=== PATIENT | female | born 1980 | race Hispanic/Latino ===

== ENCOUNTER 2020-01-24 22:32 | Inpatient (IN) | payer OTHER ==
[2020-01-24 22:58] LABS: Hemoglobin 12.7 g/dL (12.0-16.0); Mean Corpuscular HGB CONC 32.1 g/dL (32.0-36.0); Mean Corpuscular Hemoglobin 28.3 pg (27.0-31.0); Mean Platelet Volume 6.6 fL (7.4-10.4); Platelet Count 233 thou/uL (130-400); White Blood Cell (WBC) Count 18.2 thou/uL (4.8-10.8)
[2020-01-24 23:17] LABS: Band 13 % (5-11); Lymphocytes 1 % (21-51); MDiff Complete? YES; Monocytes 1 % (0-10); Neutrophil 85 % (42-75); Platelet Morphology Comment Appears Adequate; RBC Morphology Normal
[2020-01-24 23:18] LABS: ALT (SGPT) 17 U/L (8-55); AST (SGOT) 14 U/L (5-34); Albumin 3.9 g/dL (3.5-5.0); Alkaline Phosphatase 82 U/L (40-110); Anion Gap 11 mmol/L (10-20); BUN (Urea Nitrogen) 9 mg/dL (7.0-18.7); Bilirubin, Total 0.5 mg/dL (0.2-1.2); Calc. Creatinine Clearance 0 mL/min (70-130); Carbon Dioxide 25 mmol/L (22-29); Chloride 106 mmol/L (98-107); Estimated GFR-MDRD 83; Globulin 2.7 g/dL (2.4-3.5); Glucose 145 mg/dL (70-105); Potassium 3.7 mmol/L (3.5-5.1); Protein, Total 6.6 g/dL (6.0-8.3); Sodium 138 mmol/L (136-145)
[2020-01-24 23:28] LABS: Bacteria/HPF 4+ HPF (None Seen); Bilirubin Negative (Negative); Blood, Urine 2+ (Negative); Clarity Turbid (Clear); Glucose, Urine (Dipstick) Normal (Negative); Leukocyte 500 Leu/uL (Negative); Mucous/LPF 1+ LPF (<2+); Nitrite Negative (Negative); Pregnancy Test - Urine (BHCG) Negative (Negative); Pregu Control Background? CLEAR/WHITE (CLR/WHITE); Pregu Control Bar Appear? YES (CONTROL BAR); Protein, Urine (Dipstick) 50 mg/dL (Neg-Trace); Specific Gravity 1.019 (1.002-1.036); Squamous Epithelial 0-3 HPF (0-3); Urobilinogen Normal mg/dL (Less than 2); WBC/HPF Greater than 50 HPF (0-3)
[2020-01-24] MEDS ORDERED: cefTRIAXone\\ROCEPHIN 1 GM VIAL ONE (23:45)
[2020-01-24] MEDS ORDERED: Acetaminophen 500 MG TAB ONE (23:59)
[2020-01-25] MEDS ORDERED: Morphine 4 MG/ML VIAL ONE (02:00)
[2020-01-25 03:14] VITALS: BMI 38.8
[2020-01-25] MEDS ORDERED: Ondansetron ODT 4 MG TAB SL PRN (03:29)
[2020-01-25] MEDS ORDERED: Ondansetron PF 4 MG/2 ML Vial IVP PRN (03:29)
[2020-01-25] MEDS ORDERED: Sodium Chloride 0.9% 1,000 ML IV SCH ×2 (03:30→05:00)
[2020-01-25] MEDS: Sodium Chloride 0.9% 1,000 ML IV SCH ×4 (03:45→18:00)
[2020-01-25] MEDS ORDERED: Morphine 2 MG/ML SYRINGE SLOW IVP PRN (04:54)
[2020-01-25] MEDS: Acetaminophen 325 MG TAB PO PRN ×4 (05:57→23:55)
[2020-01-25 06:29] LABS: Anion Gap 11 mmol/L (10-20); BUN (Urea Nitrogen) 6 mg/dL (7.0-18.7); Calc. Creatinine Clearance 203 mL/min (70-130); Calcium 8.1 mg/dL (7.8-10.44); Carbon Dioxide 21 mmol/L (22-29); Chloride 107 mmol/L (98-107); Estimated GFR-MDRD Greater than 90; Glucose 152 mg/dL (70-105); Potassium 3.8 mmol/L (3.5-5.1); Sodium 135 mmol/L (136-145)
[2020-01-25 06:31] LABS: Band 6 % (5-11); Hemoglobin 11.6 g/dL (12.0-16.0); Hypochromia SLIGHT = 6-15 cells (100X) (0-5/hpf); Lymphocytes 5 % (21-51); MDiff Complete? YES; Mean Corpuscular HGB CONC 33.2 g/dL (32.0-36.0); Mean Corpuscular Volume 87.5 fL (78.0-98.0); Mean Platelet Volume 7.2 fL (7.4-10.4); Monocytes 2 % (0-10); Neutrophil 87 % (42-75); Platelet Count 191 thou/uL (130-400); Platelet Morphology Comment Appears Adequate; RBC Distribution Width 13.1 % (11.5-14.5); White Blood Cell (WBC) Count 13.3 thou/uL (4.8-10.8)
--- NOTE | 2020-01-25 06:52 | HP ---
REASON FOR ADMISSION: Right inguinal pain. HISTORY OF PRESENT ILLNESS: This is a 39-year-old female patient, who started having right inguinal pain radiating to her right lumbosacral area on the day of her presentation. She also noted that she developed an upset stomach, loss of appetite couple of days ago, and also diarrhea. She took ibuprofen, which made her nauseous. The patient describes her inguinal pain as severe and sharp in nature, associated with severe headache and muscle achiness. In the ER, she was found to have low blood pressure, also a positive urinalysis for infection. PAST MEDICAL HISTORY: The patient does not have any past medical history. SOCIAL HISTORY: She does not smoke, does not drink alcohol. FAMILY HISTORY: Reviewed, found to be noncontributory. PAST SURGICAL HISTORY: . ALLERGIES: NO NOTE OF ANY DRUG ALLERGY. REVIEW OF SYSTEMS: All systems reviewed, except for the above-mentioned right inguinal pain, found to be negative. PHYSICAL EXAMINATION: GENERAL: She is awake, alert, oriented, does not appear in distress. She does report severe headaches. VITAL SIGNS: Her blood pressure 102/66, temperature 100.8, heart rate of 93, and saturating 98% on room air. HEAD: Nontraumatic, normocephalic. Pupils are equal and reactive. Extraocular movements are intact. Nonicteric sclerae. Well injected conjunctivae. Oral mucosa normal. Nasal mucosa normal. NECK: Supple. No adenopathy. No murmur. Thyroid is not palpable. Trachea is midline. No supraclavicular adenopathy. HEART: S1 and S2 regular. No murmur. No gallops. No friction rubs. No displacement of PMI. LUNGS: Clear to auscultation bilaterally. No wheezes, no rhonchi, no crackles. ABDOMEN: Bowel sounds are positive. Tenderness on palpation of the right inguinal area. Positive costovertebral angle tenderness. EXTREMITIES: No lower extremity edema. No cyanosis noted. NEUROLOGIC: Exam of cranial nerves 2 through 12 within normal limits. Normal motor function. Normal sensory function. Normal reflexes. LABORATORY DATA: Blood work shows WBC of 18.2, neutrophil count 85%, lymphocyte count 1%, hemoglobin 12.7, and platelets of 233. Sodium 138, potassium 3.7, BUN 9, and creatinine 0.77. Urinalysis positive for leukocyte esterase and wbc. IMAGING DATA: An abdominal CT shows no evidence of obstructive stone. ASSESSMENT AND PLAN: This is a 39-year-old female patient, who is presenting with right inguinal pain. She has pyelonephritis. She is currently having episodes of shivering. I believe that she is bacteremic. For that reason, we will collect blood culture. I will expand her IV antibiotic therapy by using cefepime. She did receive a dose of Rocephin in the ER and also her right lower extremity did show some redness. She says that she had sunburn couple weeks ago, but I believe that also she might have cellulitis of that extremity. She does have history of an open ulceration on that extremity due to drainage of a cyst two years ago. The patient will be on aggressive IV fluid hydration. For DVT prophylaxis, she will be on Lovenox. Job ID: [id number]
--- NOTE | 2020-01-25 07:57 | CT ---
PRELIMINARY REPORT/[facility]/EMERGENCY AFTER HOURS PROCEDURE PROCEDURE: CT Scan Abdomen and Pelvis without IV Contrast Material. HISTORY: RIGHT flank pain. TECHNIQUE: Axial images were performed with multiplanar reconstructions without IV contrast material. The patient was not given oral contrast material. COMPARISON: 08/18/2010. FINDINGS: Clear lung bases. Liver, spleen, adrenals, pancreas show no significant abnormality. Subcentimeter nonobstructing calyceal stone RIGHT kidney. Minimal ureterectasis on the RIGHT down to the bladder without evidence of a stone and could be related to recently passed stone, urinary tract infection, or sloughed papilla. Normal biliary tract. NO ascites or pneumoperitoneum. Normal aorta. No lymphadenopathy. NO bowel dilatation or inflammation. Normal appendix in the RIGHT lower quadrant. Mild colonic diver ticulosis. Pelvis shows NO masses or free fluid. Normal reproductive organs and urinary bladder. NO acute bony abnormality. IMPRESSION: Ureterectasis on the RIGHT without evidence of a ureteral stone with differential above. RIGHT nephrolithiasis. No other significant abnormality identified. ELECTRONICALLY SIGNED BY: Edgardo Clifton MD January 25, 2020 12:50:59 AM CDT This report is intended for review by the ordering physician only, in accordance of law. If you recei ve this report in error, please call [facility] at [phone]. FINAL REPORT EMERGENT AFTER HOURS CT OF THE ABDOMEN AND PELVIS WITHOUT CONTRAST: FINDINGS/IMPRESSION: I agree with the findings and impression given in the preliminary report per [facility] physici an. 1. There is a tiny punctate 1 mm right renal calcification. 2. There may be mild prominence of the right ureter without significant calyceal dilatation. This m ay be normal for the patient. 3. Diverticulosis. 4. There is a macroscopic fat density mass involving the right adrenal gland which likely represents an adrenal myelolipoma. POS: EAA
[2020-01-25] MEDS: Enoxaparin Sodium 40 MG/0.4 ML SYRINGE SC SCH (08:55)
[2020-01-25] MEDS: Cefepime 2 GM in Sodium Chloride 0.9% 100 ML IVPB SCH ×2 (08:55→20:25)
[2020-01-25] MEDS: oxyCODONE/Acetaminophen 5 mg/325 mg Tablet PO PRN ×2 (12:40→20:26)
--- NOTE | 2020-01-25 14:01 | PDOC.HOSPP ---
- Subjective Encounter Date: 01/25/20 Encounter Time: 11:50 Subjective: PAIN at the back better but has headache- frontal no temporal pain or pain behind the eye. KEL PENDING, ON CEFEPEIME. - Objective Vital Signs & Weight: Vital Signs (12 hours) Temp Pulse Resp BP BP Pulse Ox 01/25/20 11:57 99.1 F 78 16 102/67 95 01/25/20 08:08 99.7 F H 86 18 107/68 97 01/25/20 06:55 101.5 F H 01/25/20 06:30 102.1 F H 01/25/20 05:17 98 01/25/20 04:03 102/66 01/25/20 03:14 100.8 F H 93 20 179/89 H 98 Weight Weight 263 lb I&O: 01/24/20 01/25/20 01/26/20 06:59 06:59 06:59 Intake Total 1800 Balance 1800 Result Diagrams: 01/25/20 05:55 01/25/20 05:55 Hospitalist ROS - Medication Medications: Active Medications Generic Name Dose Route Start Last Admin Trade Name Freq PRN Reason Stop Dose Admin Acetaminophen 650 mg 01/25/20 04:50 01/25/20 09:44 Tylenol PO 650 mg Q4H PRN Administration Headache/Fever/Mild Pain (1-3) Enoxaparin Sodium 40 mg 01/25/20 09:00 01/25/20 08:55 Lovenox SC 40 mg 0900 DILEEP Administration Sodium Chloride 1,000 mls @ 100 mls/hr 01/25/20 03:30 01/25/20 03:45 Normal Saline 0.9% IV 1,000 mls .Q10H DILEEP Administration Cefepime HCl 2 gm/ Sodium 100 mls @ 200 mls/hr 01/25/20 09:00 01/25/20 08:55 Chloride IVPB 100 mls Q12HR DILEEP Administration Sodium Chloride 1,000 mls @ 100 mls/hr 01/25/20 05:00 01/25/20 06:19 Normal Saline 0.9% IV Not Given .Q10H DILEEP Oxycodone/Acetaminophen 1 tab 01/25/20 11:57 01/25/20 12:40 Percocet 5/325 PO 1 tab Q6H PRN Administration Pain - Exam General Appearance: NAD, awake alert Eye: PERRL ENT: normocephalic atraumatic Neck: supple Heart: RRR, normal peripheral pulses Respiratory: CTAB, normal chest expansion Gastrointestinal: soft, non-distended, normal bowel sounds Neurological: cranial nerve grossly intact, normal sensation to touch, no focal deficits Hosp A/P - Plan R.Inguinal pain Pylonephritis Leukocytosis--->trending down r. leg cellulitis - cw cefepime -urine kel --in porcess? WAN, tension -anlagesic follow the clinical course, if improved - and no kel result yet, can dc with 10 to 14 day course of levaquin. [NKA].
[2020-01-26] MEDS: Sodium Chloride 0.9% 1,000 ML IV SCH ×3 (00:07→17:39)
[2020-01-26] MEDS: oxyCODONE/Acetaminophen 5 mg/325 mg Tablet PO PRN (05:26)
[2020-01-26 05:48] LABS: #Eosinphils 0.1 thou/uL (0.0-0.7); #Lymphocytes 0.6 thou/uL (1.20-3.40); #Monocytes 0.6 thou/uL (0.11-0.59); %Basophils 0.2 % (0.0-1.0); %Eosinophils 0.8 % (0.0-10.0); %Lymphocytes 8.5 % (21.0-51.0); %Monocytes 8.8 % (0.0-10.0); %Neutrophils 81.6 % (42.0-75.0); Hemoglobin 11.4 g/dL (12.0-16.0); Mean Corpuscular HGB CONC 31.6 g/dL (32.0-36.0); Mean Corpuscular Hemoglobin 28.3 pg (27.0-31.0); Mean Corpuscular Volume 89.5 fL (78.0-98.0); Mean Platelet Volume 6.8 fL (7.4-10.4); Platelet Count 150 thou/uL (130-400); RBC Distribution Width 13.1 % (11.5-14.5); Red Blood Cell (RBC) Count 4.04 mill/uL (4.20-5.40); White Blood Cell (WBC) Count 7.3 thou/uL (4.8-10.8)
[2020-01-26 06:24] LABS: Anion Gap 11 mmol/L (10-20); BUN (Urea Nitrogen) 4 mg/dL (7.0-18.7); Calc. Creatinine Clearance 212 mL/min (70-130); Calcium 7.8 mg/dL (7.8-10.44); Carbon Dioxide 23 mmol/L (22-29); Chloride 108 mmol/L (98-107); Estimated GFR-MDRD Greater than 90; Glucose 121 mg/dL (70-105); Potassium 3.7 mmol/L (3.5-5.1); Sodium 138 mmol/L (136-145)
[2020-01-26] MEDS: Enoxaparin Sodium 40 MG/0.4 ML SYRINGE SC SCH (09:50)
[2020-01-26] MEDS: Cefepime 2 GM in Sodium Chloride 0.9% 100 ML IVPB SCH (09:50)
[2020-01-26] MEDS: Acetaminophen 325 MG TAB PO PRN ×3 (10:00→21:37)
--- NOTE | 2020-01-26 12:53 | CT ---
CT HEAD WITHOUT IV CONTRAST COMPARISON: None HISTORY: Unresolved headache. Patient has complained of a headache for 3 to 4 days. No history of trauma. TECHNIQUE: Axial CT imaging at 5 mm intervals from vertex through skull base without contrast FINDINGS: There is no evidence of an acute infarction, hemorrhage, mass effect, or midline shift. The ventricul ar system is normal in size, shape, and position. Visualized paranasal sinuses are clear. Osseous structures appear intact. IMPRESSION: 1. No acute intracranial abnormality demonstrated.
[2020-01-26] MEDS ORDERED: Cyclobenzaprine 10 MG TAB PO SCH (13:30)
--- NOTE | 2020-01-26 13:50 | PDOC.HOSPP ---
- Subjective Encounter Date: 01/26/20 Encounter Time: 11:20 Subjective: feels tension type headache. also neck stiffness. brief exam with chin to chest elicits more pain. if it worse, we may need LP, pt had in the past and says to get it done, if WAN worse. will getHCT stat and go from there. BL kel neg so far. - Objective Vital Signs & Weight: Vital Signs (12 hours) Temp Pulse Resp BP Pulse Ox 01/26/20 10:54 98.3 F 64 16 104/70 96 01/26/20 07:20 98.6 F 69 16 111/74 97 01/26/20 04:00 98.8 F 71 18 117/83 99 Weight Weight 263 lb I&O: 01/25/20 01/26/20 01/27/20 06:59 06:59 06:59 Intake Total 1800 4070 Output Total 2400 Balance 1800 1670 Result Diagrams: 01/26/20 05:37 01/26/20 05:37 Hospitalist ROS - Medication Medications: Active Medications Generic Name Dose Route Start Last Admin Trade Name Freq PRN Reason Stop Dose Admin Acetaminophen 650 mg 01/25/20 04:50 01/26/20 10:00 Tylenol PO 650 mg Q4H PRN Administration Headache/Fever/Mild Pain (1-3) Cyclobenzaprine HCl 10 mg 01/26/20 13:30 01/26/20 13:34 Flexeril PO 01/26/20 15:30 10 mg NOW DILEEP Administration Enoxaparin Sodium 40 mg 01/25/20 09:00 01/26/20 09:50 Lovenox SC 40 mg 0900 DILEEP Administration Cefepime HCl 2 gm/ Sodium 100 mls @ 200 mls/hr 01/25/20 09:00 01/26/20 09:50 Chloride IVPB 100 mls Q12HR DILEEP Administration Sodium Chloride 1,000 mls @ 100 mls/hr 01/25/20 05:00 01/26/20 05:27 Normal Saline 0.9% IV 1,000 mls .Q10H DILEEP Administration Oxycodone/Acetaminophen 1 tab 01/25/20 11:57 01/26/20 05:26 Percocet 5/325 PO 1 tab Q6H PRN Administration Pain - Exam General Appearance: NAD, awake alert Eye: PERRL ENT: normocephalic atraumatic Neck: supple Heart: RRR Respiratory: CTAB, normal chest expansion Gastrointestinal: soft, normal bowel sounds Neurological: cranial nerve grossly intact Neurological - other findings: neck stiffness Hosp A/P - Plan R.Inguinal pain Pylonephritis Leukocytosis--->trending down r. leg cellulitis - cw cefepime-------------> to LQ -urine kel --in process? -bl kel negative - WAN, tension -anlagesic also neck stiffness. brief exam with chin to chest elicits more pain. if it worse, we may need LP, pt had in the past and says to get it done, if WAN worse. will get HCT stat and go from there. follow the clinical course, if improved - and no kel result yet, can dc with 10 to 14 day course of levaquin. [NKA].
[2020-01-26] MEDS: Fioricet 325/50/40 mg Tablet PO PRN ×2 (17:39→23:52)
[2020-01-26] MEDS: Cyclobenzaprine 10 MG TAB PO SCH (21:37)
[2020-01-27] MEDS: Sodium Chloride 0.9% 1,000 ML IV SCH (03:48)
[2020-01-27] MEDS: oxyCODONE/Acetaminophen 5 mg/325 mg Tablet PO PRN (03:48)
[2020-01-27 06:02] LABS: Anion Gap 10 mmol/L (10-20); BUN (Urea Nitrogen) 4 mg/dL (7.0-18.7); Calc. Creatinine Clearance 250 mL/min (70-130); Calcium 7.7 mg/dL (7.8-10.44); Carbon Dioxide 21 mmol/L (22-29); Chloride 110 mmol/L (98-107); Estimated GFR-MDRD Greater than 90; Glucose 101 mg/dL (70-105); Potassium 3.6 mmol/L (3.5-5.1); Sodium 137 mmol/L (136-145)
[2020-01-27] MEDS ORDERED: Ondansetron ODT 4 MG TAB PO PRN (08:54)
[2020-01-27] MEDS ORDERED: Ondansetron PF 4 MG/2 ML Vial IVP PRN (08:54)
[2020-01-27] MEDS: Cyclobenzaprine 10 MG TAB PO SCH ×2 (09:33→14:33)
[2020-01-27] MEDS: Enoxaparin Sodium 40 MG/0.4 ML SYRINGE SC SCH (09:33)
[2020-01-27] MEDS: Fioricet 325/50/40 mg Tablet PO PRN (11:48)
[2020-01-27 12:13] VITALS: BP 100/72; TEMP 97.8
--- NOTE | 2020-01-27 14:14 | PDOC.HOSPP ---
- Subjective Encounter Date: 01/27/20 Encounter Time: 10:15 Subjective: Ms Montoya was seen as a follow up this morning for pyelonephritis, leg cellulitis, and headache. She states she is feeling great today except that she has not had a bowel movement recently that she can remember. Her headache was helped by the firoicet yesterday and is almost completely gone. She was walking the hallways because she is feeling better. - Objective Vital Signs & Weight: Vital Signs (12 hours) Temp Pulse Resp BP Pulse Ox 01/27/20 12:04 97.8 F 60 18 100/72 100 01/27/20 08:00 98.0 F 71 18 116/81 96 01/27/20 03:45 98.5 F 57 L 16 106/72 91 L Weight Weight 263 lb I&O: 01/26/20 01/27/20 01/28/20 06:59 06:59 06:59 Intake Total 4070 3180 Output Total 2400 1600 Balance 1670 1580 Result Diagrams: 01/26/20 05:37 01/27/20 05:20 Hospitalist ROS - Medication Medications: Active Medications Generic Name Dose Route Start Last Admin Trade Name Freq PRN Reason Stop Dose Admin Acetaminophen 650 mg 01/25/20 04:50 01/26/20 21:37 Tylenol PO 650 mg Q4H PRN Administration Headache/Fever/Mild Pain (1-3) Acetaminophen/Butalbital/Caffeine 1 tab 01/26/20 16:36 01/27/20 11:48 Fioricet PO 1 tab TIDPRN PRN Administration Headache Cyclobenzaprine HCl 10 mg 01/26/20 21:00 01/27/20 09:33 Flexeril PO Not Given TID DILEEP Enoxaparin Sodium 40 mg 01/25/20 09:00 01/27/20 09:33 Lovenox SC Not Given 0900 DILEEP Sodium Chloride 1,000 mls @ 100 mls/hr 01/25/20 05:00 01/27/20 03:48 Normal Saline 0.9% IV 1,000 mls .Q10H DILEEP Administration Levofloxacin 750 mg 01/27/20 06:00 01/27/20 05:24 Levaquin PO 750 mg 0600 DILEEP Administration Oxycodone/Acetaminophen 1 tab 01/25/20 11:57 01/27/20 03:48 Percocet 5/325 PO 1 tab Q6H PRN Administration Pain - Exam General Appearance: NAD, awake alert Neck: supple, symmetric, no lymphadenopathy Heart: RRR, no murmur, no gallops, no rubs Respiratory: CTAB, no wheezes, no rales, no ronchi Gastrointestinal: soft, non-tender, non-distended, normal bowel sounds Neurological: no focal deficits Psychiatric: normal affect, normal behavior Hosp A/P (1) Pyelonephritis Code(s): N12 - TUBULO-INTERSTITIAL NEPHRITIS, NOT SPCF ACUTE OR CHRONIC Status: Acute (2) Headache Code(s): R51 - HEADACHE Status: Acute - Plan Pyelonephritis: WBC 7.3 and patient is afebrile, CVA tenderness resolved, awaiting blood culture results, no urine culture seen Headache: mainly resolved, Fioricet helped to decrease pain last night Plan for discharge this afternoon with home PO antibiotics Discussed patient with Dr. Quinones
--- NOTE | 2020-01-27 20:51 | DIS ---
DATE OF ADMISSION: 01/25/2020 DATE OF DISCHARGE: 01/27/2020 DISCHARGE DISPOSITION AND FOLLOWUP: The patient discharged home. The patient was seen and examined on the day of discharge. Denies any new complaints. INPATIENT CONSULTS: None. CLINICAL COURSE: The patient is a 39-year-old female who began having right inguinal pain radiating down to her right lumbosacral area on the day of her admission. She also noted upset stomach, loss of appetite and diarrhea. In the ER, she was found with a low blood pressure and positive for UTI. She was diagnosed with pyelonephritis and blood cultures were collected. She was started on IV antibiotics in the ER and aggressive IV fluid hydration. Yesterday, she had a pretty significant headache, for which they completed a brain CT and showed no acute abnormalities. She was given Fioricet, which in turn helped her pain dissipate. This morning she stated that she felt good and was ambulating in the halls multiple times. She stated that she no longer had any CVA tenderness upon assessment. She has remained afebrile. Her labs were back to baseline and she voiced her readiness to go home. FINAL DIAGNOSES: 1. Pyelonephritis. 2. Headache. DISCHARGE MEDICATIONS: 1. Levaquin 750 mg p.o. daily x14 days. 2. Florastor 250 mg p.o. daily for a month. DISCHARGE INSTRUCTIONS: The patient was encouraged to find a primary care physician and followup from the hospital next week. She was also instructed to fully take her antibiotics and to take the Florastor daily for a month. TIME SPENT: Total time coordinating the discharge of this patient was 25 minutes. Patient discussed with Dr. Quinones. Job ID: [id number] [facility]
--- NOTE | 2020-01-30 10:10 | PQF ---
RIA OJEDA ZIAD MD [id number] [facility]- [id number] CLINICAL DOCUMENTATION CLARIFICATION FORM: POST DISCHARGE Addendum to original discharge summary date: ____ Late entry note date: __ DATE: 01/30/2020 ATTN:JAXON CHISHOLM MD Please exercise your independent, professional judgment in responding to the clarification form. Clinical indicators are provided on the bottom of this form for your review Please check appropriate box(es): [ y ] Sepsis [ ] Bacteremia only [ ] Localized infection without sepsis [ ] Other diagnosis [ ] Unable to determine For continuity of documentation, please document condition throughout progress notes and discharge summary. Thank You. CLINICAL INDICATORS - SIGNS / SYMPTOMS / LABS - I believe that she is bacteremia- H&P, 01/24, JAXON CHISHOLM MD - WBC: 18.2- H&P, 01/24, JAXON CHISHOLM MD - BP: 102/66, Temp: 100.8, HR: 93- H&P, 01/24, JAXON CHISHOLM MD - Found to have low blood pressure, also a positive urinanalysis for infection- H&P, 01/24, JAXON CHISHOLM MD RISK FACTORS -Cellulitis of extremity-H&P, 01/24, JAXON CHISHOLM MD -Pyelonephritis- -H&P, 01/24, JAXON CHISHOLM MD TREATMENTS: - Rocephin.IV- NOV, 01/23 - Cefepime.IV- NOV, 01/24 (This form is maintained as a part of the permanent medical record) 2014 [employer] All Rights Reserved Edy [email or web address]
== END 2020-01-27 16:16 | disposition home or self-care (01) | DRG 872 ==
LOC: ERS 22:32 → OBSVTOIN 01-25 01:23 → SURG B 01-25 01:23
PROVIDERS: ADMIT Internal Medicine; ATTEND Internal Medicine
DX: A41.9 Sepsis, unspecified organism (principal); N12 Tubulo-interstitial nephritis, not specified as acute or chronic; L03.115 Cellulitis of right lower limb; F17.210 Nicotine dependence, cigarettes, uncomplicated; R51 Headache
CPT/HCPCS: 36415; 70450; 74176; 80048; 80053; 81003; 81015; 81025; 85025; 87040; 96365; 96375; J0692; J0696; J1650; J2270; J2405; J3490

== ENCOUNTER 2021-09-25 19:51 | Emergency (ER) | payer OTHER | END 2021-09-25 20:59 | disposition home or self-care (01) | LOC: ERS 19:51 | DX: U07.1 COVID-19 (principal); L03.011 Cellulitis of right finger; F17.210 Nicotine dependence, cigarettes, uncomplicated | CPT/HCPCS: 99283 ==

== ENCOUNTER 2022-04-18 19:42 | Emergency (ER) | payer OTHER ==
[2022-04-18 20:36] LABS: Bilirubin Negative (Negative); Blood, Urine Negative (Negative); Clarity Clear (Clear); Glucose, Urine (Dipstick) Normal (Negative); Ketone, Urine Negative (Negative); Leukocyte Negative Leu/uL (Negative); Nitrite Negative (Negative); Protein, Urine (Dipstick) 10 mg/dL (Neg-Trace); Specific Gravity, Urine 1.027 (1.002-1.036); Urobilinogen Normal mg/dL (Less than 2)
[2022-04-18 20:37] LABS: Pregnancy Test - Urine (BHCG) Negative (Negative); Pregu Control Background? CLEAR/WHITE (CLR/WHITE); Pregu Control Bar Appear? YES (CONTROL BAR); Specific Gravity 1.027 (1.002-1.036)
[2022-04-18] MEDS ORDERED: Ketorolac Tromethamine 30 MG/ML VIAL ONE (20:37)
[2022-04-18] MEDS ORDERED: Diazepam 5 MG TAB ONE (20:40)
[2022-04-18] MEDS ORDERED: Ondansetron ODT 4 MG TAB ONE (20:40)
== END 2022-04-18 22:31 | disposition home or self-care (01) ==
LOC: ERS 19:42
DX: M54.50 Low back pain, unspecified (principal); F17.210 Nicotine dependence, cigarettes, uncomplicated
CPT/HCPCS: 74176; 81003; 81025; 96372; J1885; Q0162

== ENCOUNTER 2022-04-21 10:18 | Outpatient (CLI) | payer OTHER | END 2022-04-21 10:19 | disposition home or self-care (01) | LOC: BICMAMMO 10:18 | PROVIDERS: ATTEND Family Medicine | DX: N63.20 Unspecified lump in the left breast, unspecified quadrant (principal) | CPT/HCPCS: 77066; G0279 ==

== ENCOUNTER 2024-04-28 11:40 | Outpatient (CLI) | payer OTHER | END 2024-04-28 11:41 | disposition home or self-care (01) | LOC: BICMAMMO 11:40 | PROVIDERS: ATTEND Nurse Practitioner Family | DX: Z12.31 Encounter for screening mammogram for malignant neoplasm of breast (principal); N64.89 Other specified disorders of breast; Z80.3 Family history of malignant neoplasm of breast | CPT/HCPCS: 77063; 77067 ==

== ENCOUNTER 2025-06-12 08:06 | Outpatient (CLI) | payer OTHER | END 2025-06-12 08:07 | disposition home or self-care (01) | LOC: BICMAMMO 08:06 | PROVIDERS: ATTEND Nurse Practitioner Family | DX: Z12.31 Encounter for screening mammogram for malignant neoplasm of breast (principal); Z80.3 Family history of malignant neoplasm of breast | CPT/HCPCS: 77063; 77067 ==